=== PATIENT | male | born 1960 | race African-American/Black ===

== ENCOUNTER 2020-03-16 06:22 | Emergency (ER) | payer MEDICAID, OTHER ==
[2020-03-16] MEDS ORDERED: LIDOCAINE 2% URO-JET 5 ML KIT MM ONE (06:41)
--- NOTE | 2020-03-16 07:02 | ER Document Report ---
ED General - General Chief Complaint: Trouble Voiding Stated Complaint: TROUBLE URINATING Time Seen by Provider: 03/16/20 06:50 Primary Care Provider: BOOGIE LIVINGSTON MD [NO LOCAL MD] - 03/16/20 9:00 am Mode of Arrival: Ambulatory Information source: Patient - [facility] Notes: Patient presents with lower abdominal pain and the inability to urinate. He states this is been going on for about 12 hours. He states he has had this trouble before and has had to have a catheter placed. He states it was due to prostate problems. His pain is been crampy. Is been severe. Nothing makes it better or worse. It radiates throughout his lower abdomen. He denies any other fevers or significant problems. - Related Data Allergies/Adverse Reactions: No Known Allergies Allergy (Verified 06/25/13 13:05) Past Medical History - General Information source: Patient - Social History Smoking Status: Never Smoker Chew tobacco use (# tins/day): No Frequency of alcohol use: Social Drug Abuse: Marijuana Family History: Reviewed & Not Pertinent Patient has homicidal ideation: No - Past Medical History Cardiac Medical History: Reports: Hx Hypertension Denies: Hx Heart Attack Pulmonary Medical History: Denies: Hx Tuberculosis Renal/ Medical History: Reports: Hx Benign Prostatic Hyperplasia Musculoskeletal Medical History: Reports Hx Arthritis Psychiatric Medical History: Reports: Hx Depression Traumatic Medical History: Reports: Hx Fractures - right ankle Past Surgical History: Reports: Hx Orthopedic Surgery - back. Denies: Hx Pacemaker Review of Systems - Review of Systems Constitutional: denies: Chills, Fever Cardiovascular: denies: Chest pain, Palpitations Respiratory: denies: Cough, Short of breath -: Yes All other systems reviewed and negative Physical Exam - Vital signs Vitals: Temp 98.1 F 03/16/20 06:32 Interpretation: Normal - General General appearance: Appears well, Alert - HEENT Head: Normocephalic, Atraumatic Eyes: Normal Pupils: PERRL - Respiratory Respiratory status: No respiratory distress Chest status: Nontender Breath sounds: Normal Chest palpation: Normal - Cardiovascular Rhythm: Regular Heart sounds: Normal auscultation Murmur: No - Abdominal Inspection: Normal Distension: Distended Bowel sounds: Normal Tenderness: Tender - Mild to moderate tenderness of lower abdomen over the bladder Organomegaly: No organomegaly - Genitourinary Inspection: Normal Tenderness: Nontender Scrotum: Normal - Back Back: Normal, Nontender - Extremities General upper extremity: Normal inspection, Nontender, Normal color, Normal ROM, Normal temperature General lower extremity: Normal inspection, Nontender, Normal color, Normal ROM, Normal temperature, Normal weight bearing. No: Andrew's sign - Neurological Neuro grossly intact: Yes Cognition: Normal Orientation: AAOx4 [place] Coma Scale Eye Opening: Spontaneous [place] Coma Scale Verbal: Oriented [place] Coma Scale Motor: Obeys Commands [place] Coma Scale Total: 15 Speech: Normal Motor strength normal: LUE, RUE, LLE, RLE Sensory: Normal - Psychological Associated symptoms: Normal affect, Normal mood - Skin Skin Temperature: Warm Skin Moisture: Dry Skin Color: Normal Course - Re-evaluation Re-evalutation: 03/16/20 07:31 Patient came with urinary retention. I tried to place a 14 coud into the patient and was unable to get past the prostate. However when I remove this catheter patient urinated on his own a large amount approximately 5 to 750 cc of urine. I then tried to place a 20-gauge daily because I felt the patient would have urinary retention once again and I sent him home. However I was unable to get this past the prostate as well. My plan now is to have the patient follow- up in urology clinic today. - Vital Signs Vital signs: Temp Pulse Resp BP Pulse Ox 98.1 F 87 20 180/103 H 96 03/16/20 06:39 03/16/20 06:39 03/16/20 06:39 03/16/20 06:39 03/16/20 06:39 - Laboratory Laboratory results interpreted by me: 03/16/20 06:51 Urine Protein >=500 H Urine Glucose (UA) 50 H Urine Blood MODERATE H Discharge - Discharge Clinical Impression: Urinary retention Condition: Stable Disposition: HOME, SELF-CARE Instructions: Urinary Retention ([facility]) Additional Instructions: Dr. Washburn's office will contact you today concerning follow-up Forms: Return to Work Referrals: ADRIANO WASHBURN MD [NO LOCAL MD] - Follow up tomorrow
[2020-03-16 07:43] LABS: APPEARANCE,URINE CLEAR; BILIRUBIN,URINE NEGATIVE (NEGATIVE); COLOR,URINE YELLOW; GLUCOSE, URINE 50 mg/dL (NEGATIVE); KETONES,URINE NEGATIVE (NEGATIVE); LEUKOCYTE ESTERASE,URINE NEGATIVE (NEGATIVE); NITRITE,URINE NEGATIVE (NEGATIVE); PROTEIN,URINE >=500 mg/dL (NEGATIVE); URINE SPECIFIC GRAVITY 1.009; UROBILINOGEN,URINE NEGATIVE mg/dL (<2.0)
[2020-03-16 10:15] VITALS: BP 169/107
== END 2020-03-16 10:00 | disposition home or self-care (01) ==
LOC: ER 06:22
DX: R33.9 Retention of urine, unspecified (principal); R10.30 Lower abdominal pain, unspecified; F12.10 Cannabis abuse, uncomplicated; I10 Essential (primary) hypertension
CPT/HCPCS: 99283; 81001; J3490